=== PATIENT | male | born 1985 | race Caucasian/White ===

== ENCOUNTER 2016-12-14 23:00 | Emergency (ER) | payer OTHER ==
[2016-12-14 20:58] LABS: HEMOGLOBIN 16.5 g/dL (13.6-17.8); MEAN CORPUS HGB CONC 35.9 g/dL (32.0-36.0); MEAN CORPUSCULAR HEMOGLOB 31.1 pg (26.0-34.0); MEAN CORPUSCULAR VOLUME 86.6 fL (80-100); MEAN PLATELET VOLUME 10.6 fL (9.2-13.0); PLATELET COUNT 106 10/3/uL (150-400); RBC DISTRIBUTION WIDTH 12.8 % (12.0-16.0); RED CELL COUNT 5.31 10/6/uL (4.7-6.1); WHITE BLOOD CELLS 7.5 10/3/uL (4.5-10.5)
[2016-12-14 20:59] LABS: ASCORBIC ACID (UR NOT ORDER) NEG (NEG); BILIRUBIN, URINE NEGATIVE (NEG); ER URINALYSIS TAT 0 Hrs 21 Mins; KETONE, URINE NEGATIVE (NEG); LEUKOCYTE ESTERASE(NOT OR NEG (NEG); NITRITE (URINE) NEG (NEG); WBC (NOT ORDERED) (RFLEX) 1 (0-5)
[2016-12-14 21:00] LABS: DIFFERENTIAL ORDERED Y
[2016-12-14 21:11] LABS: A/G RATIO 1.1 (0.7-1.9); ALBUMIN 4.1 G/DL (3.5-5.0); ALKALINE PHOSPHATASE 72 U/L (45-117); BUN (BLOOD UREA NITROGEN) 10 MG/DL (6-23); CALCIUM, SERUM 8.7 MG/DL (8.5-10.4); CHLORIDE, SERUM 105 MMOL/L (96-112); CO2 (CARBON DIOXIDE) 27 MMOL/L (24-34); GFR AFRICAN AMERICAN 102 ML/MIN (>=60); GFR NON AFRICAN AMERICAN 88 ML/MIN (>=60); GLOBULIN 3.7 G/DL (2.5-4.1); GLUCOSE, SERUM 80 MG/DL (60-99); SGPT(ALT) 43 U/L (5-65); SODIUM, SERUM 140 MMOL/L (135-148); TOTAL BILIRUBIN 0.5 MG/DL (0-1.2); TOTAL PROTEIN 7.8 G/DL (6.0-8.5)
[2016-12-14 21:12] LABS: SGOT(AST) 24 U/L (5-40)
[2016-12-14 21:16] LABS: BAND NEUTROPHILS 1 %; EOSINOPHILS 1 %; EOSINOPHILS ABSOLUTE (CALC) 0.08 10/3/uL (0.0-0.53); LYMPHOCYTES 27 %; LYMPHOCYTES ABSOLUTE (CALC) 2.03 10/3/uL (0.67-4.30); MONOCYTES 6 %; MONOCYTES ABSOLUTE (CALC) 0.45 10/3/uL (0.21-1.20); NEUTROPHILS ABSOLUTE (CALC) 4.95 10/3/uL (2.02-8.40); PLATELET ESTIMATE SLT DEC (ADEQUATE); RBC MORPHOLOGY NORM (NORMAL); SEGMENTED NEUTROPHIL (0) 65 %; TOTAL NUCLEATED CELLS 100
== END 2016-12-15 00:06 | disposition home or self-care (01) ==
LOC: ER 23:00
PROVIDERS: Emergency Medicine
DX: R51 Headache (principal); F17.200 Nicotine dependence, unspecified, uncomplicated; Z88.0 Allergy status to penicillin
CPT/HCPCS: 70450; 71020; 80053; 81001; 85007; 85027; 93005; 96372; 99285; J1885; J2765

== ENCOUNTER 2017-02-11 15:58 | Emergency (ER) | payer OTHER | END 2017-02-11 19:18 | disposition home or self-care (01) | LOC: ER 15:58 | PROC: 0H90XZZ Drainage of Scalp Skin, External Approach (ICD-10-PCS; principal; 2017-02-11) | DX: L02.811 Cutaneous abscess of head [any part, except face] (principal); F17.200 Nicotine dependence, unspecified, uncomplicated; Z88.0 Allergy status to penicillin | CPT/HCPCS: 70250; 99283 ==